=== PATIENT | male | born 1960 | race African-American/Black ===

== ENCOUNTER 2020-08-30 12:45 | Emergency (ER) | payer OTHER ==
[~2020-08-30] VITALS: Ht 170.2 cm; Wt 79.0 kg
[2020-08-30] MEDS ORDERED: LIDOCAINE HCL/EPINEPHRINE 1%-EPI 1:100,000 20 ML VIAL INFIL ONE (14:00)
[2020-08-30] MEDS ORDERED: LIDOCAINE HCL/PF 1% 10 MG/ML 5ML VIAL IJ ONE (14:30)
[2020-08-30] MEDS ORDERED: IBUPROFEN 600MG TABLET PO ONE (14:30)
[2020-08-30] MEDS ORDERED: BACITRACIN ZINC OINT UDPKT TOP ONE (14:30)
[2020-08-30] MEDS ORDERED: TETANUS, DIPHTHERIA, PERTUSSIS VAC/PF 0.5ML (>7YR OLD) IM ONE (14:30)
[2020-08-30 15:00] VITALS: BP 198/108
== END 2020-08-30 16:00 | disposition home or self-care (01) ==
LOC: ER 13:24
DX: S61.512A Laceration without foreign body of left wrist, initial encounter (principal); X58.XXXA Exposure to other specified factors, initial encounter; Y93.89 Activity, other specified; Y92.89 Other specified places as the place of occurrence of the external cause; Y99.8 Other external cause status
CPT/HCPCS: 12002; 90471; 90715; 99283; J3490

== ENCOUNTER 2020-09-10 13:08 | Emergency (ER) | payer OTHER ==
[~2020-09-10] VITALS: Ht 170.2 cm; Wt 78.0 kg
[2020-09-10 13:11] VITALS: BP 165/100
== END 2020-09-10 15:25 | disposition home or self-care (01) ==
LOC: ER 15:13
DX: S61.511D Laceration without foreign body of right wrist, subsequent encounter (principal); Z48.00 Encounter for change or removal of nonsurgical wound dressing; X58.XXXD Exposure to other specified factors, subsequent encounter
CPT/HCPCS: 99281